=== PATIENT | female | born 1980 | race African-American/Black ===

== ENCOUNTER 2016-11-07 08:00 | Inpatient (IN) | payer OTHER ==
[2016-11-02 13:36] VITALS: BMI 35.6
[2016-11-21] MEDS ORDERED: VASOPRESSIN 20 UNITS/ML VIAL IV ONE (10:10)
[2016-11-21] MEDS ORDERED: ROPIVACAINE HCL 0.5% 30ML VIAL ONE (10:58)
[2016-11-21] MEDS ORDERED: MIDAZOLAM HCL 2 MG/2 ML SINGLE DOSE VIAL ONE ×3 (10:59→11:51)
[2016-11-21] MEDS ORDERED: IBUPROFEN 800 MG/8 ML IJ IVPB PRN (11:42)
[2016-11-21] MEDS ORDERED: oxyCODONE HCL 5 MG TABLET PO PRN ×2 (11:42)
[2016-11-21] MEDS ORDERED: HYDROmorphone HCL CARPU-JECT 1 MG/1 ML DISP.SYRIN IVPB PRN (11:42)
--- NOTE | 2016-11-21 11:42 | HP ---
History & Physical Update - History History: No Change - Physical Physical: No Change - Assessment Assessment: No Change - Plan Plan: No Change
--- NOTE | 2016-11-21 11:48 | OP ---
Operative Note - Note: Operative Date: 11/21/16 Pre-Operative Diagnosis: Leiomyomatous Uterus Operation: Abdominal Myomectomy Findings: Multiple myomas removed Post-Operative Diagnosis: Same as Pre-op Surgeon: Helen Ortega [employer] Field Agent: Debi Rios Anesthesia: General Estimated Blood Loss (mls): 20 Operative Report Dictated: Yes
[2016-11-21] MEDS ORDERED: DEXAMETHASONE SOD PHOSPHATE 4 MG/1 ML VIAL ONE (11:51)
[2016-11-21] MEDS ORDERED: ceFAZolin SODIUM 1 GM VIAL ONE (11:51)
[2016-11-21] MEDS ORDERED: ROCURONIUM BROMIDE 50 MG/5 ML VIAL ONE (11:51)
[2016-11-21] MEDS ORDERED: SODIUM CHLORIDE 0.9% P/F 10 ML VIAL IJ ONE (11:51)
[2016-11-21] MEDS ORDERED: ceFAZolin SODIUM 1 GM VIAL IVPB ONE (12:04)
[2016-11-21] MEDS ORDERED: NEOSTIGMINE METHYLSULFATE 0.5 MG/ML - 10 ML MDV ONE (12:49)
[2016-11-21] MEDS ORDERED: ONDANSETRON 4 MG/2 ML VIAL IVPUSH PRN ×2 (13:10→13:11)
[2016-11-21] MEDS ORDERED: HYDROmorphone HCL CARPU-JECT 1 MG/1 ML DISP.SYRIN IVPUSH PRN (13:10)
[2016-11-21] MEDS ORDERED: PROMETHAZINE HCL 25 MG/1 ML VIAL IVPB PRN (13:11)
[2016-11-21] MEDS ORDERED: DEXAMETHASONE SOD PHOSPHATE 4 MG/1 ML VIAL IVPUSH PRN (13:11)
[2016-11-21] MEDS ORDERED: HYDROmorphone *PCA* 10MG/50ML DISP.SYRIN PCA SCH ×2 (13:15→14:33)
[2016-11-21] MEDS: DEXTROSE 5%-LACTATED RINGERS 1,000 ML IV SCH (15:10)
[2016-11-21] MEDS: CEFAZOLIN 1 GM/D5W 50 ML IVPB SCH (17:38)
[2016-11-21] MEDS: metFORMIN HCL 500 MG TABLET (FP) PO SCH (17:57)
[2016-11-21] MEDS ORDERED: CEFAZOLIN 1 GM/D5W 50 ML IVPB SCH (18:00)
[2016-11-21 21:04] LABS: BASOPHIL 0.5 % (0-2.0); MCH 28.5 pg (25.7-33.7); MCHC 34.6 g/dl (32.0-36.0); MEAN CELL VOLUME 82.5 fl (80-96); MEAN PLT VOLUME 8.2 fl (7.5-11.1); NEUTROPHILS 87.4 % (42.8-82.8); PLATELET COUNT 293 K/MM3 (134-434); RDW 12.7 % (11.6-15.6)
[2016-11-22] MEDS: DEXTROSE 5%-LACTATED RINGERS 1,000 ML IV SCH (01:00)
[2016-11-22] MEDS: CEFAZOLIN 1 GM/D5W 50 ML IVPB SCH (01:38)
[2016-11-22] MEDS: metFORMIN HCL 500 MG TABLET (FP) PO SCH ×2 (06:38→17:03)
[2016-11-22] MEDS: glipiZIDE 5 MG TABLET (FP) PO SCH (06:38)
[2016-11-22] MEDS ORDERED: LACTATED RINGERS SOLUTION 1,000 ML IV SCH (07:15)
[2016-11-22 07:39] LABS: EOSINOPHIL 0.3 % (0-4.5); MCH 28.6 pg (25.7-33.7); MCHC 34.2 g/dl (32.0-36.0); MEAN CELL VOLUME 83.5 fl (80-96); MEAN PLT VOLUME 8.2 fl (7.5-11.1); PLATELET COUNT 265 K/MM3 (134-434); RDW 13.1 % (11.6-15.6); WHITE BLOOD COUNT 13.5 K/mm3 (4.0-10.0)
[2016-11-22] MEDS ORDERED: IBUPROFEN 600 MG TABLET (FP) PO PRN (08:33)
--- NOTE | 2016-11-22 08:42 | PN ---
Progress Note, Physician Chief Complaint: Unable to sleep overnight History of Present Illness: Pt seen/evaluated and doing well. Pain controlled, tolerating clear diet. Some VB overnight but pt on menses. Not yet OOB. Lu catheter draining clear yellow urine. NO CP/SOB/F/C/YANG. No other complaints. BG this a.m. 220 - Current Medication List Current Medications: Active Medications Dexamethasone Sodium Phosphate (Decadron Injection -) 4 mg IVPUSH ONCE PRN PRN Reason: NAUSEA AND/OR VOMITING Enoxaparin Sodium (Lovenox -) 30 mg SQ DAILY [facility] Glipizide (Glucotrol -) 5 mg PO ACBK [facility] Last Admin: 11/22/16 06:38 Dose: 5 mg Hydromorphone HCl (Dilaudid Injection -) 1 mg IVPB Q4H PRN PRN Reason: PAIN Hydromorphone HCl (Dilaudid Injection -) 1 mg IVPUSH [id number] PRN PRN Reason: PAIN Stop: 11/24/16 13:11 Lactated Ringer's (Lactated Ringers Solution) 1,000 mls @ 100 mls/hr IV ASDIR [facility] Ibuprofen (Motrin -) 600 mg PO Q6H PRN PRN Reason: FEVER Insulin Aspart (Novolog Vial Sliding Scale -) 1 vial SQ BIDAC [facility] PRN Reason: Protocol Losartan Potassium (Cozaar -) 50 mg PO DAILY [facility] Metformin HCl (Glucophage -) 500 mg PO BIDAC [facility] Last Admin: 11/22/16 06:38 Dose: 500 mg Oxycodone HCl (Roxicodone -) 5 mg PO Q4H PRN PRN Reason: PAIN Oxycodone HCl (Roxicodone -) 10 mg PO Q4H PRN PRN Reason: PAIN Promethazine HCl (Phenergan Injection -) 12.5 mg IVPB Q6H PRN PRN Reason: NAUSEA AND/OR VOMITING - Objective Vital Signs: Vital Signs Temperature 98.4 F 11/22/16 05:00 Pulse Rate 71 11/22/16 05:00 Respiratory Rate 18 11/22/16 05:00 Blood Pressure 117/69 11/22/16 05:00 O2 Sat by Pulse Oximetry (%) 98 11/21/16 21:00 Constitutional: Yes: Well Nourished, No Distress, Calm Eyes: Yes: Conjunctiva Clear, EOM Intact HENT: Yes: Atraumatic, Normocephalic Neck: Yes: Supple, Trachea Midline Cardiovascular: Yes: Regular Rate and Rhythm Respiratory: Yes: Regular, CTA Bilaterally Gastrointestinal: Yes: Soft, Tenderness (appropriate post surgical tenderness) Genitourinary: Yes: Lu Present Edema: No Wound/Incision: Yes: Clean/Dry, Dressing Dry and Intact Neurological: Yes: Alert, Oriented Psychiatric: Yes: Alert, Oriented Labs: CBC, BMP 11/22/16 07:00 Problem List - Problems (1) S/P myomectomy Code(s): Z98.89 - OTHER SPECIFIED POSTPROCEDURAL STATES * DO NOT USE * (2) Diabetes mellitus Code(s): E11.9 - TYPE 2 DIABETES MELLITUS WITHOUT COMPLICATIONS Assessment/Plan 36 y/o POD#1 s/p abdominal myomectomy for abnormal bleeding - AFVSS - Hgb 12.0 post op, stable - BGM 220 this a.m. - discontinued D5 in IV fluids, now on LR only. Sliding scale insulin added to regimen prn - pt restarted home regimen of glipizide/ metformin this a.m. Continue AC/BID BGM checks. OK to advance to regular diabetic diet this afternoon. - Encourage OOB, d/c thomas, PO pain meds, routine care
[2016-11-22] MEDS ORDERED: ACETAMINOPHEN 325 MG TABLET (FP) PO PRN (08:45)
[2016-11-22] MEDS ORDERED: PCA PUMP KEY 1 EACH EACH ONE (09:18)
[2016-11-22] MEDS ORDERED: ENOXAPARIN NA (PORCINE) 40 MG/0.4 ML DISP.SYRIN SQ SCH (10:00)
[2016-11-22] MEDS: ENOXAPARIN NA (PORCINE) 30 MG/0.3 ML DISP.SYRIN SQ SCH (10:09)
[2016-11-22] MEDS: LOSARTAN POTASSIUM 50 MG TABLET (FP) PO SCH (11:30)
--- NOTE | 2016-11-22 14:56 | PN ---
Progress Note (short form) - Note Progress Note: ANESTHESIA POST-OP CHECK 36F s/p abdominal myomectomy with bilateral TAP blocks and under general anesthesia, POD #1. No acute complaints, pain 6/10 and tolerable. Denies N/V, ambulating, tolerating PO diet. Vital Signs Temperature 99.2 F 11/22/16 14:00 Pulse Rate 94 H 11/22/16 14:00 Respiratory Rate 20 11/22/16 14:00 Blood Pressure 124/68 11/22/16 14:00 O2 Sat by Pulse Oximetry (%) 98 11/21/16 21:00 Active Medications Acetaminophen (Tylenol -) 650 mg PO Q4H PRN PRN Reason: FEVER OR PAIN Dexamethasone Sodium Phosphate (Decadron Injection -) 4 mg IVPUSH ONCE PRN PRN Reason: NAUSEA AND/OR VOMITING Enoxaparin Sodium (Lovenox -) 30 mg SQ DAILY [facility] Last Admin: 11/22/16 10:09 Dose: 30 mg Glipizide (Glucotrol -) 5 mg PO ACBK [facility] Last Admin: 11/22/16 06:38 Dose: 5 mg Hydromorphone HCl (Dilaudid Injection -) 1 mg IVPB Q4H PRN PRN Reason: PAIN Hydromorphone HCl (Dilaudid Injection -) 1 mg IVPUSH [id number] PRN PRN Reason: PAIN Stop: 11/24/16 13:11 Lactated Ringer's (Lactated Ringers Solution) 1,000 mls @ 100 mls/hr IV ASDIR [facility] Ibuprofen (Motrin -) 600 mg PO Q6H PRN PRN Reason: FEVER Insulin Aspart (Novolog Vial Sliding Scale -) 1 vial SQ BIDAC [facility] PRN Reason: Protocol Losartan Potassium (Cozaar -) 50 mg PO DAILY [facility] Last Admin: 11/22/16 11:30 Dose: 50 mg Metformin HCl (Glucophage -) 500 mg PO BIDAC [facility] Last Admin: 11/22/16 06:38 Dose: 500 mg Oxycodone HCl (Roxicodone -) 5 mg PO Q4H PRN PRN Reason: PAIN Oxycodone HCl (Roxicodone -) 10 mg PO Q4H PRN PRN Reason: PAIN Promethazine HCl (Phenergan Injection -) 12.5 mg IVPB Q6H PRN PRN Reason: NAUSEA AND/OR VOMITING Gen: awake, alert No apparent anesthesia complications. Pain well controlled. Continue management as per primary team.
--- NOTE | 2016-11-22 16:07 | OP ---
DATE OF OPERATION: 11/21/2016 PREOPERATIVE DIAGNOSIS: Leiomyomatous uterus. OPERATION: Abdominal myomectomy. POSTOPERATIVE DIAGNOSIS: Leiomyomatous uterus. SURGEON: Helen Ortega MD FAMILY SERVICE CASEWORKER: Debi Rios MD ANESTHESIA: General. PROCEDURE: Patient was taken to the operating room, placed in supine position, prepped and draped in the usual sterile fashion. Pfannenstiel skin incision was made with a scalpel. Cautery was then used to go through layers of abdominal wall to the level of the fascia. The fascia was cut in the midline and cautery was then used to open the fascia in smiling fashion. Kochers then used to bluntly and sharply dissect the rectus muscle off the fascia. Muscles split in the midline. Peritoneal cavity was entered and carried up and down. Bowel was packed out of the operative field and leiomyomatous uterus was exteriorized. Two myomas were identified, a 4-cm myoma in the fundus. Cautery was then used to make a circumferential incision around the myoma and myoma was then enucleated. Anteriorly a 3-cm myoma was identified and cautery was then used to enter the serosa and the muscle of the uterus and anterior myoma was enucleated. Incision was then closed using 2-0 V-Loc suture in a continuous and locking manner. Anteriorly the incision was then closed using V-Loc suture. Hemostasis was achieved. Interceed was placed over the incision and uterus interiorized. Peritoneal cavity was then cleaned with clean lap pads and abdominal sweep done and peritoneum closed using 0 Vicryl suture. Muscles approximated in midline using 0 Vicryl suture. Fascia was then closed using 0 Vicryl suture in 2 parts. Skin was then closed using 3-0 Vicryl in subcuticular fashion. The wound was washed and dressed. Patient tolerated procedure well. Estimated blood loss was 20 mL. [place] [id number]
[2016-11-22] MEDS ORDERED: INSULIN SLIDING SCALE (NOVOLOG) 1 VIAL SQ SCH (16:30)
[2016-11-22] MEDS: INSULIN SLIDING SCALE (NOVOLOG) 1 VIAL SQ SCH (17:01)
[2016-11-23] MEDS: metFORMIN HCL 500 MG TABLET (FP) PO SCH (06:28)
[2016-11-23] MEDS: glipiZIDE 5 MG TABLET (FP) PO SCH (06:28)
[2016-11-23] MEDS: INSULIN SLIDING SCALE (NOVOLOG) 1 VIAL SQ SCH (06:30)
[2016-11-23 07:55] VITALS: BP 121/77; PULSE 92; TEMP 99.2
[2016-11-23] MEDS: LOSARTAN POTASSIUM 50 MG TABLET (FP) PO SCH (09:24)
[2016-11-23] MEDS: ENOXAPARIN NA (PORCINE) 30 MG/0.3 ML DISP.SYRIN SQ SCH (09:24)
--- NOTE | 2016-11-23 11:12 | DS ---
Physical Examination Vital Signs: Vital Signs Temperature 99.2 F 11/23/16 07:54 Pulse Rate 92 H 11/23/16 07:54 Respiratory Rate 18 11/23/16 07:54 Blood Pressure 121/77 11/23/16 07:54 O2 Sat by Pulse Oximetry (%) 98 11/21/16 21:00 Findings/Remarks: Pt seen/evaluated on day of discharge. Pain controlled, tolerating diet. Ambulating, voiding, passing flatus. No CP/SOB/F/C/YANG. No complaints. Constitutional: Yes: Well Nourished, No Distress, Calm Eyes: Yes: Conjunctiva Clear, EOM Intact HENT: Yes: Atraumatic, Normocephalic Neck: Yes: Supple, Trachea Midline Cardiovascular: Yes: Regular Rate and Rhythm Respiratory: Yes: Regular, CTA Bilaterally Gastrointestinal: Yes: Normal Bowel Sounds, Soft. No: Tenderness Musculoskeletal: Yes: WNL Extremities: Yes: WNL Wound/Incision: Yes: Clean/Dry, Well Approximated Neurological: Yes: Alert, Oriented Psychiatric: Yes: Alert, Oriented Labs: CBC, BMP 11/22/16 07:00 Discharge Summary Reason For Visit: MENORRHAGIA/LEIOMYOMATOUS UTERS/INTRAMURAL MYOMA Current Active Problems Diabetes mellitus (Acute) S/P myomectomy (Acute) Procedures: Principal: Abdominal myomectomy Hospital Course: Pt admitted 11/21/16 for abdominal myomectomy due to AUB and fibroids. Pt underwent uncomplicated surgery and recovery. On post op day 2, patient was voiding, passing flatus, tolerating diet and ambulating without issues. Pt was discharged home in stable condition on post op day 2. Condition: Good - Instructions Diet, Activity, Other Instructions: Dr. Helen Ortega Recreation Clerk discharge instructions Physical activity Resume your normal everyday activity as tolerated no heavy lifting or exercise until seen by your surgeon. You may walk unlimited mark of and climb stairs. You may resume driving the car when you feel safe and comfortable behind the wheel. No sexual activity as instructed by Dr. Ortega. Wound care If you have a bandage, leave it on, and keep dry for 48-72 hours. After that time discard the outer bandage. If they are tapes on the skin under the out of bandage leave them in place. They will peel off in the next 7 to 10 days. Do Not Peel them off. You may shower the day after surgery. If there are tapes present on the skin, you may shower over them. Diet There are no dietary restrictions. Eat healthy, high-fiber foods. Drink 6 to 8 glasses of liquid each day. This will assist in keeping your bowels are regular. Pain management You may take Tylenol or acetaminophen or Ibuprofen (for example, Motrin, Advil etc.) from my pain prescription medication is ordered should be taken as prescribed for moderate to severe pain. Call Dr. Ortega for any of the following: Severe pain not relieved by medication Fever of 101 or higher Excessive bleeding or drainage on dressing Inability to urinate Call the office at [phone] for an appointment in seven days. Referrals: Helen Ortega MD [Staff Physician] - 1 Week Disposition: HOME - Home Medications Comprehensive Discharge Medication List: Ambulatory Orders Glipizide 5 mg PO DAILY 11/02/16 Losartan Potassium 50 mg PO DAILY 11/02/16 Metformin HCl 500 mg PO BID 11/02/16 Oxycodone HCl/Acetaminophen [Percocet 5-325 mg Tablet -] 1 tab PO Q4H #20 tablet MDD 6 11/22/16
--- NOTE | 2016-11-23 13:33 | PATH ---
Surgical Pathology Report Patient Name: RICHA RUFFIN [facility]. Rec. #: [id number] /Age/Gender: 1980 (Age: 36) / F Account: [id number] Location: [facility] OBS/STRUCTURES ENGINEER Taken: 11/21/2016 Received: 11/21/2016 Reported: 11/23/2016 Physicians: Helen Ortega M.D. Specimen(s) Received UTRINE FIBROIDS Clinical History Uterine fibroids Final Diagnosis UTERINE FIBROIDS, ABDOMINAL MYOMECTOMY: LEIOMYOMAS (LARGEST 3.8 CM) Comment: Immunohistochemical stains performed and interpreted [facility] one block #2 show positivity with SMM-HC and ER immunostains and lack of staining with Ae1/Ae3, highlights and smooth muscle fibers and supporting the interpretation above. Electronically Signed Federico Reyes M.D. Gross Description Received in formalin, labeled "uterine fibroids," is a 27 g aggregate of 4 aguilar, irregular nodules ranging from 1.0-3.8 cm in greatest dimension. Sectioning reveals aguilar, firm to rubbery parenchyma with whorled architecture. No areas of hemorrhage or necrosis are identified. Pressure Dispatcher sections are submitted in 4 cassettes as follows: 1-2-two smallest fibroids in toto; 3-entirely submitted fibroid; 7-4-cwqtzxhayxebbr largest fibroid. /11/21/2016 saudi11/21/2016
== END 2016-11-23 11:10 | disposition home or self-care (01) | DRG 743 ==
LOC: EDSTATUS 11-21 08:00 → JSAMEDAYSX 11-21 09:59 → J3W 11-21 15:28
PROVIDERS: ADMIT Obstetrics & Gynecology; ATTEND Obstetrics & Gynecology
PROC: 0UB90ZZ Excision of Uterus, Open Approach (ICD-10-PCS; principal; 2016-11-21 11:30)
DX: D25.9 Leiomyoma of uterus, unspecified (principal); E11.9 Type 2 diabetes mellitus without complications; I10 Essential (primary) hypertension; N93.8 Other specified abnormal uterine and vaginal bleeding; Z79.84 Long term (current) use of oral hypoglycemic drugs
CPT/HCPCS: 36415; 84703; 85025; 86850; 86900; 86901; 88305-TC; 88341-TC; 94010; 94760